=== PATIENT | female | born 1965 | race Caucasian/White ===

== ENCOUNTER 2016-06-17 21:33 | Emergency (ER) | payer SELFPAY ==
[~2016-06-17] VITALS: Ht 167.6 cm; Wt 59.1 kg
[2016-06-17 21:59] VITALS: Ht 167.6 cm; Wt 59.1 kg
--- NOTE | 2016-06-18 01:27 | RADRPT ---
PROCEDURE: CT BRAIN WITHOUT CONTRAST CLINICAL INDICATION: 50-year-old female with trauma. TECHNIQUE: The study was performed utilizing [employer] VCT 64-slice CT scanner. Direct axial sections were obtained from the foramen magnum to the vertex without the use of intravenous contrast material. Sagittal and coronal reformations were obtained. Automated exposure control and iterativ e reconstruction techniques were utilized for this examination. The images were viewed on a PACS [facility]. CTD/vol = 45.0 mGy; Total Exam DLP = 720.2 mGy-cm. COMPARISON: None. FINDINGS: There is mild prominence of the sulci and cisternal spaces consistent with diffuse volume loss. Oth erwise, the ventricles have a normal shape and position. There is no evidence for mass effect or mid line shift. There are no intracranial areas of abnormal attenuation. There is no evidence for acut e intra or extra-axial blood. The bony calvarium is intact. There is mild mucosal thickening within the ethmoid air cells and inferior maxillary sinuses. No air-fluid levels are noted. The mastoid a ir cells are without significant soft tissue. There is sclerotic appearance to the dependent portio n of the right mastoid air cells consistent with prior mastoid disease. IMPRESSION: 1. Mild diffuse volume loss. 2. Mild mucosal thickening ethmoid air cells inferior maxillary sinuses. .Javier Flores MD, Date Time Electronically viewed and signed by .Javier Flores MD, on 06/18/2016 01:27 .M/
--- NOTE | 2016-06-18 01:37 | ERD ---
ER Documentation Chief Complaint Date/Time DATE: 06/18/16 TIME: 01:35 Chief Complaint ETOH INTOXICATION AND FACIAL INJURY. RADHA HOW IT HAPPENED HPI This is a 50-year-old female who is here for alcohol intoxication. Patient had a fall and had her face. No loss of consciousness per the patient. She is unaware of how she fell. More than likely patient states she "blacked out" ROS All systems reviewed and are negative except as per history of present illness. PMhx/Soc Medical and Surgical Hx: pt denies Medical Hx, pt denies Surgical Hx Hx Alcohol Use: Yes Hx Substance Use: Yes Hx Tobacco Use: Yes Smoking Status: Never smoker Physical Exam Vitals Vital Signs Date Time Temp Pulse Resp B/P Pulse Ox O2 Delivery O2 Flow Rate FiO2 06/17/16 21:59 98.1 125 16 116/80 95 Physical Exam Const: [] Head: Atraumatic Eyes: Normal Conjunctiva ENT: Normal External Ears, Nose and Mouth. Neck: Full range of motion..~ No meningismus. Resp: Clear to auscultation bilaterally Cardio: Regular rate and rhythm, no murmurs Abd: Soft, non tender, non distended. Normal bowel sounds Skin: Multiple abrasions to her face. No evidence of bony trauma. Back: No midline or flank tenderness Ext: No cyanosis, or edema Neur: Awake and alert Psych: Normal Mood and Affect Procedures/MDM CT of the head is negative for any acute intracranial pathology Medical decision making: This is a very pleasant patient who has what looks to be alcohol intoxication with a closed head injury. No evidence of acute intracranial trauma. Patient nonfocal neurological. Advised to stop drinking. Patient alert and oriented 4 with goal oriented speech and good decision- making capacity and ability to negotiate the community with a non-ataxic gait upon discharge. Departure Diagnosis: Primary Impression: Alcoholic intoxication Complication of substance-induced condition: uncomplicated Qualified Code: F10.120 - Alcoholic intoxication, uncomplicated Additional Impression: Closed head injury Encounter type: initial encounter Qualified Code: S09.90XA - Closed head injury, initial encounter Condition: Stable RIMABRAD [place] Jun 18, 2016 01:37
[2016-06-18] MEDS ORDERED: LORAZEPAM 0.5 MG TAB PO ONE (09:00)
[2016-06-18] MEDS ORDERED: ONDANSETRON 4 MG INJ IM STA (09:32)
[2016-06-18 11:20] VITALS: BP 142/78; PULSE 104; RESP 20; TEMP 98.3
== END 2016-06-18 11:23 | disposition home or self-care (01) ==
LOC: E/R 21:33
DX: F10.120 Alcohol abuse with intoxication, uncomplicated (principal); S09.90XA Unspecified injury of head, initial encounter; G93.89 Other specified disorders of brain; W18.39XA Other fall on same level, initial encounter; Y92.9 Unspecified place or not applicable; Z87.891 Personal history of nicotine dependence
CPT/HCPCS: 70450; 96372; 99285; J2405